=== PATIENT | female | born 1960 | race Caucasian/White ===

== ENCOUNTER 2020-06-25 09:41 | Outpatient (CLI) | payer MEDICARE, MEDICAID, SELFPAY ==
--- NOTE | 2020-06-25 09:50 | MM_ITS ---
WS: [id number] BILATERAL DIGITAL SCREENING MAMMOGRAPHY WITH CAD CLINICAL INFORMATION: SCREENING HISTORY: Screening mammogram. No current complaints. COMPARISON: December 2018 TECHNIQUE: Bilateral CC and MLO views. FINDINGS: Scattered fibroglandular densities bilaterally. No suspicious focal mass, asymmetry, calcifications, or architectural distortion. No evidence of malignancy. Lucent centered calcification. MM/[id number] IMPRESSION: BI-RADS: 2-Benign FOLLOW UP: 1 Year Follow-up Recommend return to annual screening mammography.
== END 2020-06-25 09:42 | disposition home or self-care (01) ==
LOC: RADSHAW 09:47
PROVIDERS: PCP Nurse Practitioner Family; Visit Provider Nurse Practitioner Family
DX: Z12.31 Encounter for screening mammogram for malignant neoplasm of breast (principal)
CPT/HCPCS: 77067

== ENCOUNTER → 2021-01-29 13:00 | Outpatient (BNVA) | payer MEDICARE, MEDICAID, SELFPAY | PROVIDERS: PCP Nurse Practitioner Family; Referring Provider Nurse Practitioner Family; Visit Provider Specialist | DX: R20.0 Anesthesia of skin (principal); R20.2 Paresthesia of skin; F41.0 Panic disorder [episodic paroxysmal anxiety] | CPT/HCPCS: 95907 ==

== ENCOUNTER → 2021-03-10 12:49 | Outpatient (BNVA) | payer MEDICARE, MEDICAID, SELFPAY | PROVIDERS: PCP Nurse Practitioner Family; Visit Provider Specialist | DX: G56.01 Carpal tunnel syndrome, right upper limb (principal); R20.0 Anesthesia of skin; R20.2 Paresthesia of skin | CPT/HCPCS: 95910 ==

== ENCOUNTER 2021-09-08 06:00 | Outpatient (RCR) | payer MEDICARE, MEDICAID, SELFPAY | END 2021-10-01 23:59 | disposition home or self-care (01) | LOC: SPT 06:00 | PROVIDERS: PCP Nurse Practitioner Family; Referring Provider Nurse Practitioner Family; Visit Provider Nurse Practitioner Family | DX: G89.29 Other chronic pain (principal); M25.511 Pain in right shoulder | CPT/HCPCS: 97110; 97161 ==

== ENCOUNTER 2021-12-14 09:35 | Outpatient (CLI) | payer MEDICARE, MEDICAID, SELFPAY ==
--- NOTE | 2021-12-14 09:44 | MM_ITS ---
WS: [id number] BILATERAL SCREENING DIGITAL TOMOSYNTHESIS MAMMOGRAM WITH CAD HISTORY: SCREENING COMPARISON: 06/25/2020 and 12/19/2018 Bilateral CC and MLO views with tomosynthesis and synthetic mammography submitted. Computer aided det ection analyzed. Breast composition: There are scattered areas of fibroglandular density. No suspicious masses, microc alcifications or architectural distortion. Benign calcifications in each breast. No suspicious mass o r calcification. MM/[id number] IMPRESSION: BI-RADS: 2-Benign FOLLOW UP: 1 Year Follow-up
== END 2021-12-14 09:36 | disposition home or self-care (01) ==
PROVIDERS: PCP Nurse Practitioner Family; Visit Provider Nurse Practitioner Family
DX: Z12.31 Encounter for screening mammogram for malignant neoplasm of breast (principal)
CPT/HCPCS: 77063; 77067

== ENCOUNTER → 2021-12-15 10:33 | Outpatient (BNVA) | payer MEDICARE, MEDICAID, SELFPAY | PROVIDERS: PCP Nurse Practitioner Family; Referring Provider Nurse Practitioner Family; Visit Provider Physician Assistant | DX: M47.22 Other spondylosis with radiculopathy, cervical region (principal); M50.30 Other cervical disc degeneration, unspecified cervical region | CPT/HCPCS: 72050; 99203; 99204 ==

== ENCOUNTER → 2022-01-12 12:51 | Outpatient (BNVA) | payer MEDICARE, MEDICAID, SELFPAY | PROVIDERS: PCP Nurse Practitioner Family; Visit Provider Physician Assistant | DX: M50.30 Other cervical disc degeneration, unspecified cervical region (principal); M47.22 Other spondylosis with radiculopathy, cervical region | CPT/HCPCS: 99214 ==

== ENCOUNTER 2022-01-12 13:55 | Outpatient (CLI) | payer MEDICARE, MEDICAID, SELFPAY | END 2022-01-12 13:56 | disposition home or self-care (01) | LOC: SPT 13:56 | PROVIDERS: PCP Nurse Practitioner Family; Visit Provider Physician Assistant | DX: Z46.89 Encounter for fitting and adjustment of other specified devices (principal); M47.22 Other spondylosis with radiculopathy, cervical region; M50.30 Other cervical disc degeneration, unspecified cervical region | CPT/HCPCS: 97760; L0172 ==

== ENCOUNTER 2022-02-22 10:22 | Inpatient (IN) | payer MEDICARE, MEDICAID, SELFPAY ==
[2022-02-15 09:28] VITALS: BMI 45.7
--- NOTE | 2022-02-15 09:50 | ANES.PREANE2 ---
Pre-Anesthetic Assessment Height/Weight: Height 1.65 m Weight 124.738 kg Preop Diagnosis: Cervical Spondylosis w/radiculopathy Operation Date: 02/22/22 13:25 Proposed Procedures p ACDF C4/5 C5/6 C6/7 [id number]/M47.22(Not Applicable) - Fei Barker, DO Familial anesthetic complications: None Social No alcohol and No tobacco Exam alert, oriented x 3, clear to auscultation bilaterally and regular rate & rhythm Airway Mallampati: Class II Dentition: other (no teeth) Pulmonary None reported CV/HEM None reported None reported Hepatic None reported GI None reported Metabolic Diabetes Mellitus, Morbid Obesity and Thyroid Disease Musc/skel Lower Back Pain Neuropsych None reported Anesthetic Plan ASA status: 3 Anesthesia: General Risk of > 500 ml blood loss (7ml/kg in children): No Medications/Allergies Home Medications Medication Instructions Recorded Confirmed Last Taken Type levothyroxine 75 mcg tablet 75 mcg PO DAILY 01/29/21 02/15/22 02/15/22 History (Levo-T) metformin 500 mg tablet 500 mg PO BID 01/29/21 02/15/22 02/15/22 History venlafaxine 75 mg capsule,extended 75 mg PO DAILY 01/29/21 02/15/22 Unknown History release 24 hr (Effexor XR) cervical collar #1 ea 01/12/22 01/12/22 Unknown Rx Intraoperative Neuromonitoring #1 ea 02/10/22 Unknown Rx Allergies Allergy/AdvReac Type Severity Reaction Status Date / Time Penicillins Allergy Mild shakes Verified 02/15/22 09:26 Data Anesthesia Cardiac Studies: No Data to Display
[2022-02-15 11:16] LABS: Anion Gap 14.1 (5-19); Blood Urea Nitrogen 20 mg/dL (6-20); Calcium 9.4 mg/dL (8.5-10.5); Carbon Dioxide 25 mmol/L (22-29); Chloride 104 mmol/L (98-107); Glomerular Filtration Rate 85.6 mL/min (90-130); Glucose 114 mg/dL (65-115); Osmolality Calculated 291 mOsm/kg (285-295); Potassium 4.1 mmol/L (3.5-5.1); Sodium 139 mmol/L (136-145)
[2022-02-22] VITALS (13 sets, daily range): BP systolic 84–144; BP diastolic 51–93; PULSE 72–110; RESP 16–18; TEMP 36.2–36.8; O2SAT 81–98; BMI 47.9
--- NOTE | 2022-02-22 | SCC_ITS ---
Post-op diagnosis: same Procedure done: 1. Anterior diskectomy C4/5 2. Anterior diskectomy C5/6 3. Anterior discectomy C6/7 4. Insertion of cage C4/5 5. Insertion of cage C5/6 6. Insertion of Cage C6/7 7. Instrumentation with anterior plate from C4-C7 8. Use of allograft 19.2 seconds of fluoroscopic guidance, for a cumulative dose of 4.08 mGy, was provided to Dr. Barker by the radiology department. C-arm images of the cervical spine were saved for the patient's permanent record. JAYE
--- NOTE | 2022-02-22 | XR_ITS ---
WS: [id number] INTRAOPERATIVE TECHNIQUE: 6 Spot fluoroscopic images for intraoperative purposes. FLUOROSCOPY TIME: 11.9 seconds CLINICAL INFORMATION: ACDF FINDINGS: ACDF C4-C7 with interbody fusion grafts. Hardware appears in good position. Endotracheal tube. C4-7 XR/XR cervical spine 3V* [id number] IMPRESSION: Images obtained for intraoperative purposes.
[2022-02-22 06:18] LABS: Glucose Point of Care 120 mg/dL (70-110)
[2022-02-22] MEDS: sodium chloride 0.9% 1,000 ML 30 ML IV (06:21)
--- NOTE | 2022-02-22 06:42 | PM.HP ---
Providers/Chief Complaint Primary Care Provider: MICHAEL Flowers Chief Complaint: ACDF C4/5 C5/6 C6/7 History of Present Illness Tamera Sofia is a 61 year old female ?neck pain with right upper extremity pain. Patient was ordered Prednisone taper dose up to her with her overall neck and arm pain.? 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 Patient reports her neck and arm pain is progressively gotten worse to the point where it is been unbearable for her with inability to care for herself.? Patient states that pain causes her to have migraine headaches.?Patient states when she bends over she feels like she may 'pass out'. Review of Systems General: Reports: 10 or more systems reviewed and unremarkable except in HPI and below Const: Denies: fever(s) or chills Card: Denies: chest pain or dyspnea on exertion Resp: Denies: dyspnea or productive cough GI: Denies: abdominal pain, nausea or vomiting : Denies: difficulty voiding Musc: Reports: neck pain; Denies: joint pain, joint swelling or limited range of motion Skin/Breast: Denies: changes in skin color or dry skin Neuro: Denies: numbness in extremities or weakness in extremities Psych: Denies: anxiety Antonio/Lymph: Denies: easy bruising or easy bleeding Medications/Allergies Home Medications Medication Instructions Recorded Confirmed Last Taken Type levothyroxine 75 mcg tablet 75 mcg PO DAILY 01/29/21 02/15/22 02/21/22 History (Levo-T) metformin 500 mg tablet 500 mg PO BID 01/29/21 02/15/22 02/21/22 History venlafaxine 75 mg capsule,extended 75 mg PO DAILY 01/29/21 02/15/22 02/21/22 History release 24 hr (Effexor XR) cervical collar #1 ea 01/12/22 01/12/22 Unknown Rx Intraoperative Neuromonitoring #1 ea 02/10/22 Unknown Rx Allergies Allergy/AdvReac Type Severity Reaction Status Date / Time Penicillins Allergy Mild shakes Verified 02/15/22 09:26 Vitals/I&O/Wt Last Vital Signs Temp 97.5 F L 02/22/22 06:05 Pulse 81 02/22/22 06:05 Resp 18 02/22/22 06:05 BP 144/93 02/22/22 06:05 Pulse Ox 81 L 02/22/22 06:05 O2 Del Method 02/22/22 06:23 Physical Exam Narrative: Narrative:?? EXAM NARRATIVE: Karlo tony demonstrates normal gait.? Neg ative Romberg or s igns of ataxia.? N ormal coordination and normal stabil ity.? Mildly tende r with palpation t hroughout the cerv ical and thoracic regions.? Normal s ensation to light touch in all derma tomal layers.? No signs of muscle wa sting.? Normal fun ctional range of m otion of the cervi chester with flexion t o 45 degrees with increased pain, ex tends 35 degrees, rotates 35 degrees symmetrically wit h difficulty, late rally bends 20 deg breann symmetrically .? Negative Spurli ng and Stevens chelsi ts.? Normal motor strength in all mu scle groups with 5 /5 strength in romel ulders, elbows, wr ists and digits bi laterally.? No [place] ss laxity.? Reflex es 1+ and symmetri c but the biceps, triceps and brachi oradialis bilatera lly.? Negative Pha ephraim's and Tinel's sign bilaterally.? Finger in her rig ht ring finger.? 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 Radia l pulses 2+ bilate rally.? No palpabl e lymphadenopathy. ? No evidence of p eripheral edema. HENMT:?? COMMON NORMALS: no rmocephalic? HEAD & SCALP: normoceph alic Resp:?? COMMON NORMALS: no rmal respiratory e ffort Cardio:?? COMMON NORMALS: re gular rate and reg ular rhythm? RATE: regular rate? RHY THM: regular rhyth m GI:?? COMMON NORMALS: So ft to palpation? P ALPATION: Yes Soft to palpation :?? COMMON NORMALS: Ye s no CVA tendernes s? BLADDER/KIDNEY EXAM: Yes no CVA t enderness Back/Pelvis:?? COMMON NORMALS: no CVA tenderness Psych:?? 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
[2022-02-22] MEDS: clindamycin 900 MG/50 ML PREMIX 100 MG IV ×3 (07:30→23:26)
--- NOTE | 2022-02-22 08:27 | P.ANESUD_ITS ---
Pre-Anesthetic Update Pre-Anesthetic Assessment: Date of Surgery/Procedure: 02/22/22 Preop Nissa gnosis: Cervical Spondylosis w/radiculopathy Proposed Procedure: Operation Date: 02/22/22 07:00 Proposed Procedures p ACDF C4/5 C5/6 C6/7 [id number]/M47.22(Not Applicable) - Fei Barker, DO Any changes to Pre-Anesthetic Assessment?: No Last Intake: Intake Last Liquid Date 02/21/22 Last Liquid Time 20:00 Last Solid Date 02/21/22 Last Solid Time 20:00 Vitals: Temperature 97.5 F L 02/22/22 06:05 Temperature Source Temporal Artery S can 02/22/22 06:05 Pulse Rate 81 02/22/22 06:05 Respiratory Rate 18 02/22/22 06:05 Blood Pressure 144/93 02/22/22 06:05 Blood Pressure Fatuma n 110 02/22/22 06:05 Pulse Oximetry 81 L 02/22/22 06:05 Oxygen Delivery Me thod 02/22/22 06:23 Exam: Pre-Anes Outpt Exam: alert, oriented x 3, clear to auscultation bilaterally and regular rate & rhythm Cardiac Studies: No Data to Display
[2022-02-22 09:13] LABS: HIV 1 & 2 Antibody Non-Reactive (Non-Reactiv); HIV 1 & 2 Antigen Non-Reactive (Non-Reactiv)
--- NOTE | 2022-02-22 10:00 | PM.OP ---
Operative Report Date of procedure: February 22, 2022 Pre-op diagnosis: Preop Diagnosis Cervical Spondylosis w/radiculopathy Post-op diagnosis: same Procedure done: 1. Anterior diskectomy C4/5 2. Anterior diskectomy C5/6 3. Anterior discectomy C6/7 4. Insertion of cage C4/5 5. Insertion of cage C5/6 6. Insertion of Cage C6/7 7. Instrumentation with anterior plate from C4-C7 8. Use of allograft Surgeon: Fei Barker Securities Compliance Examiner: Abel Pelletier Securities Compliance Examiner: The director medical surgical, Abel Pelletier, PAC was needed for his expertise under the microscope. He was important and necessary throughout the procedure to complete in a safe and timely manner. He assisted with patient positioning prepping and draping tissue retraction suctioning of the operative field protection of the dural sac and tissue closure Estimated blood loss (mL): 300 Procedure: 1. Anterior diskectomy C4/5 2. Anterior diskectomy C5/6 3. Anterior discectomy C6/7 4. Insertion of cage C4/5 5. Insertion of cage C5/6 6. Insertion of Cage C6/7 7. Instrumentation with anterior plate from C4-C7 8. Use of allograft The patient was taken to the operating room, where he underwent general endotracheal anesthesia without complications. He was then positioned supine on the operating table, and all areas of impingement were well padded. The arms were carefully padded and tucked at his sides. A roll was placed between the shoulder blades.. An x-ray was done to determine the appropriate level for the skin incision. The entire neck was then sterilely prepped and draped in the usual fashion. Neuromonitoring was attached prior to prepping. A transverse skin incision was made and carried down to the platysma muscle. This was then split in line with its fibers. Blunt dissection was carried down medial to the carotid sheath and lateral to the trachea and esophagus until the anterior cervical spine was visualized. A needle was placed into a disc and an x-ray was done to determine its location. The longus colli muscles were then elevated bilaterally with the electrocautery unit. Self-retaining retractors were placed deep to the longus colli muscle. Attention was brought to the C4/5 level that was confirmed on x-ray. A caspar pin was placed into the C4 vertebrae and the C5 vertebrae. The disk space was then distracted. The microscope was then brought in. A radical anterior discectomies were performed at C4/5. This included complete removal of the anterior annulus, nucleus, and posterior annulus. The posterior longitudinal ligament was removed as were the posterior osteophytes. Foraminotomies were then accomplished bilaterally. This was done using a high speed jake, kerrison rongeurs and curretes Once all of this was accomplished, the curved currette was used to check for any residual compression. The central canal was wide open as were the foramen. A high-speed bur was used to remove the cartilaginous endplates above and below the interspace. Bleeding cancellous bone was exposed. The disc space were measured and appropriate size cage were placed sterilely onto the field. Allograft graft was packed into the cages. The cage was then placed and there was good juxtaposition against the bleeding decorticated surfaces and good distraction of each interspace. Attention was brought to the next interspace. The Guy pins were removed. Bone wax was used to prevent any bleeding from occurring at the pin sites. Attention was brought to the C5/6 level that was confirmed on x-ray. A caspar pin was placed into the C5 vertebrae and the C6 vertebrae. The disk space was then distracted. The microscope was then brought in. A radical anterior discectomies were performed at C5/6. This included complete removal of the anterior annulus, nucleus, and posterior annulus. The posterior longitudinal ligament was removed as were the posterior osteophytes. Foraminotomies were then accomplished bilaterally. This was done using a high speed jake, kerrison rongeurs and curretes Once all of this was accomplished, the curved currette was used to check for any residual compression. The central canal was wide open as were the foramen. A high-speed bur was used to remove the cartilaginous endplates above and below the interspace. Bleeding cancellous bone was exposed. The disc space were measured and appropriate size cage were placed sterilely onto the field. Allograft graft was packed into the cages. The cage was then placed and there was good juxtaposition against the bleeding decorticated surfaces and good distraction of each interspace. Attention was brought to the next interspace. The Guy pins were removed. Bone wax was used to prevent any bleeding from occurring at the pin sites. Attention was brought to the C6/7 level that was confirmed on x-ray. A caspar pin was placed into the C6 vertebrae and the C7 vertebrae. The disk space was then distracted. The microscope was then brought in. A radical anterior discectomies were performed at C6/7. This included complete removal of the anterior annulus, nucleus, and posterior annulus. The posterior longitudinal ligament was removed as were the posterior osteophytes. Foraminotomies were then accomplished bilaterally. This was done using a high speed jake, kerrison rongeurs and curretes Once all of this was accomplished, the curved currette was used to check for any residual compression. The central canal was wide open as were the foramen. A high-speed bur was used to remove the cartilaginous endplates above and below the interspace. Bleeding cancellous bone was exposed. The disc space were measured and appropriate size cage were placed sterilely onto the field. Allograft graft was packed into the cages. The cage was then placed and there was good juxtaposition against the bleeding decorticated surfaces and good distraction of each interspace. Attention was brought to the next interspace. The Guy pins were removed. Bone wax was used to prevent any bleeding from occurring at the pin sites. The appropriate size anterior cervical locking plate was chosen and bent into gentle lordosis. Two screws were then placed into each of the vertebral bodies at C4,C5, C6 and C7. There was excellent purchase. A final x-ray was done confirming good position of the hardware and Cages. The locking screws were then applied, also with excellent purchase. Following a final copious irrigation, there was good hemostasis and no dural leaks. The carotid pulse was strong. The wounds were then closed in layers using 2-0 Vicryl suture for the platysma muscle, 2-0 Vicryl suture for the subcutaneous tissue, and 4-0 monocryl suture in a subcuticular skin closure. Glue was placed followed by application of a sterile dressing. The drain was hooked to bulb suction. A soft collar was applied. The patient was then carefully returned to the supine position on his hospital bed where he was reversed and extubated and taken to the recovery room having tolerated the procedure well.
[2022-02-22 10:16] LABS: Basophils % 0.4 %; Eosinophils % 0.4 %; Hematocrit 33.2 % (37.0-47.0); Hemoglobin 10.3 g/dL (11.5-15.3); Lymphocytes # 0.9 10^3/uL (0.8-4.8); Lymphocytes % 11.8 %; Mean Corpuscular Hemoglobin 27.7 pg (28.0-34.0); Mean Corpuscular Volume 89.2 fl (81-99); Monocytes # 0.2 10^3/uL (0.2-0.9); Monocytes % 2.9 %; Neutrophils # 6.73 10^3/uL (1.8-7.7); Nucleated Red Blood Cells % 0 %; Platelet Count 194 10^3/cmm (130-400); Red Blood Count 3.72 10^6/uL (4.1-5.3); Red Cell Distribution Width 14.7 % (12.1-15.1)
[2022-02-22] MEDS: lactated ringers 1,000 ML 90 ML IV ×2 (11:02→21:31)
[2022-02-22] MEDS: HYDROcodone-acetaminophen 5-325 mg Tablet PO ×2 (11:03→18:03)
--- NOTE | 2022-02-22 15:24 | ANE.PACU2 ---
Inpatient post-anesthesia follow up: Airway intact: Yes Vital signs: Temperature 97.3 F Pulse Rate 72 Respiratory Rate 18 Blood Pressure 131/63 Pulse Oximetry 98 Oxygen Delivery Me thod Nasal Cannula Oxygen Flow Rate 2 Fraction of Inspir ed Oxygen Hydration adequate: Yes Nausea and vomiting: No Pain level: 3 Mental status: Baseline
[2022-02-22 15:31] LABS: Hepatitis B Surface Antigen Non-Reactive (Nonreactive)
[2022-02-22] MEDS: docusate sodium 100 mg Capsule PO (17:04)
[2022-02-22] MEDS: metformin 500 mg Tablet PO (17:04)
[2022-02-23] VITALS: BP 131/86; PULSE 105; RESP 17; TEMP 36.4; O2SAT 95
[2022-02-23 03:50] VITALS: BP 132/83; PULSE 100; RESP 17; TEMP 36.9; O2SAT 92
[2022-02-23 06:00] VITALS: BP 132/83; PULSE 100; RESP 17; TEMP 36.9; O2SAT 92
--- NOTE | 2022-02-23 07:20 | PM.PN ---
Subjective Subjective: POD 1 Resting comfortably. Reports improvement of arm pain. Denies any voice or swallowing difficulties. Denies shortness of breath, headaches, chest pain. Vitals/I&O/Wt Last Vital Signs Temp 98.5 F 02/23/22 06:00 Pulse 100 02/23/22 06:00 Resp 17 02/23/22 06:00 BP 132/83 02/23/22 06:00 Pulse Ox 92 02/23/22 06:00 O2 Del Method 02/23/22 06:00 O2 Flow Rate 2 02/22/22 11:24 02/22/22 02/23/22 02/23/22 22:59 06:59 14:59 Intake Total 1673.5 / 2323.5 290 / 2613.5 Output Total 1900 / 2700 1530 / 4230 Balance -226.5 / -376.5 -1240 / -1616.5 Weight last 48 hrs Weight 288 lb 3.2 oz Physical Exam Narrative: Patient is alert and oriented x3 with a good general appearance normal mood and affect. Incision is clean and dry none tender with palpation about the incisional site. Incision appears to be healing nicely without signs of erythema or drainage. No signs of infection. Good motor strength throughout both upper extremities. Appears to fire in all motor groups with 5/5 strength. Hands are warm good cap refill in all digits. Normal sensation to light touch in all dermatomal areas. Urinary Catheter Management: Oliver Latex: Cath Placed During This Visit: yes Reason for Continuing Indwelling Catheter: Perioperative Use in Selected Surgeries Urinary Catheter Date of Insertion: 02/22/22 Urinary Catheter Time of Insertion: 07:30 Data 02/22/22 10:10 02/15/22 09:45 A&P Assessment and plan (1) Status post cervical spinal fusion: Discontinue Hemovac drain. Discontinue Oliver catheter. Physical therapy to work with mobilization. Will discharge home see her back in the office in 1 week's time for follow-up. 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
[2022-02-23 08:06] VITALS: BP 142/91; PULSE 89; RESP 16; TEMP 37; O2SAT 92
[2022-02-23] MEDS: metformin 500 mg Tablet PO (08:41)
[2022-02-23] MEDS: levothyroxine 75 mcg Tablet PO (08:41)
[2022-02-23] MEDS: docusate sodium 100 mg Capsule PO (08:42)
[2022-02-23] MEDS: venlafaxine ER (24HR) 75 mg Capsule PO (08:42)
[2022-02-23] MEDS: clindamycin 900 MG/50 ML PREMIX 100 MG IV (08:42)
[2022-02-23] MEDS: lactated ringers 1,000 ML 90 ML IV (08:43)
--- NOTE | 2022-02-23 10:19 | PC.NURSE ---
Orders given to remove hemovac, drain removed , pt tolerated well. steri strips remain in place. silverlon dressing reapplied. c collar in place.
[2022-02-23 11:16] VITALS: BP 142/91; PULSE 89; RESP 16; TEMP 37; O2SAT 92
[2022-02-23 20:23] LABS: Hepatitis B Virus DNA <10 NOT DETECTED IU/mL (NOT DETECTED); Hepatitis B Virus DNA PCR <1.00 NOT DETECTED Log IU/mL (NOT DETECTED)
--- NOTE | 2022-02-24 12:52 | PM.DCS ---
Discharge Providers Date of Admission: 02/22/22 10:22 Date of Discharge: February 23, 2022 Attending Provider at Admission: Fei Barker DO Attending Provider at Discharge: Fei Barker DO Primary Care Provider: MICHAEL Flowers Diagnoses at Discharge Discharge Diagnosis (1) Status post cervical spinal fusion: Status: Acute Reason for Visit Reason for Visit: ACDF C4/5 C5/6 C6/7 Hospital Course Hospital Course uneventful Physical Exam Urinary Catheter Management: Oliver Latex: Cath Placed During This Visit: yes, but has since been removed by the nurse Reason for Continuing Indwelling Catheter: Decision to DC Catheter Urinary Catheter Date of Insertion: 02/22/22 Urinary Catheter Time of Insertion: 07:30 Date Urinary Catheter Removed: 02/23/22 Time Urinary Catheter Discontinued: 10:18 Discharge Data Studies Completed and Pending Completed Studies During Hospitalization Category Date Time Status XR cervical spine 3V* 01975 Routine Exams 02/22/22 Completed Radiology Impressions Cervical Spine X-Ray 02/22/22 00:00 IMPRESSION: Images obtained for intraoperative purposes. Laboratory Results WBC 8.0 10^3/uL (4.0-10.0) 02/22/22 10:10 Corrected WBC Cancelled 02/22/22 08:56 RBC 3.72 10^6/uL (4.1-5.3) L 02/22/22 10:10 Hgb 10.3 g/dL (11.5-15.3) L 02/22/22 10:10 Hct 33.2 % (37.0-47.0) L 02/22/22 10:10 MCV 89.2 fl (81-99) 02/22/22 10:10 MCH 27.7 pg (28.0-34.0) L 02/22/22 10:10 MCHC 31.0 g/dL (30.0-36.0) 02/22/22 10:10 RDW 14.7 % (12.1-15.1) 02/22/22 10:10 Plt Count 194 10^3/cmm (130-400) 02/22/22 10:10 MPV 11.0 fL (7.4-10.4) H 02/22/22 10:10 Gran % Cancelled 02/22/22 08:56 Neut % (Auto) 84.0 % 02/22/22 10:10 Lymph % (Auto) 11.8 % 02/22/22 10:10 [place] % (Auto) 2.9 % 02/22/22 10:10 Eos % (Auto) 0.4 % 02/22/22 10:10 Baso % (Auto) 0.4 % 02/22/22 10:10 Neut # (Auto) 6.73 10^3/uL (1.8-7.7) 02/22/22 10:10 Lymph # (Auto) 0.9 10^3/uL (0.8-4.8) 02/22/22 10:10 [place] # (Auto) 0.2 10^3/uL (0.2-0.9) 02/22/22 10:10 Eos # (Auto) 0.0 10^3/uL (0.0-0.8) 02/22/22 10:10 Baso # (Auto) 0.0 10^3/uL (0.0-0.1) 02/22/22 10:10 Absolute Gran (auto) Cancelled 02/22/22 08:56 Nucleated RBC % (auto) 0 % 02/22/22 10:10 Nucleated RBCs # 0.0 /100WBC 02/22/22 10:10 Sodium 139 mmol/L (136-145) 02/15/22 09:45 Potassium 4.1 mmol/L (3.5-5.1) 02/15/22 09:45 Chloride 104 mmol/L (98-107) 02/15/22 09:45 Carbon Dioxide 25 mmol/L (22-29) 02/15/22 09:45 Anion Gap 14.1 (5-19) 02/15/22 09:45 BUN 20 mg/dL (6-20) 02/15/22 09:45 Creatinine 0.7 mg/dL (0.5-0.9) 02/15/22 09:45 GFR Calculation 85.6 mL/min (90-130) L 02/15/22 09:45 Glucose 114 mg/dL (65-115) 02/15/22 09:45 POC Glucose 120 mg/dL (70-110) H 02/22/22 06:14 Calculated Osmolality 291 mOsm/kg (285-295) 02/15/22 09:45 Calcium 9.4 mg/dL (8.5-10.5) 02/15/22 09:45 Hep Bs Antigen Non-reactive (Nonreactive) 02/22/22 08:15 Hepatitis B DNA (PCR) <1.00 not detected Log IU/mL (NOT DETECTED) 02/22/22 08:15 Hep B DNA Interpret <10 not detected IU/mL (NOT DETECTED) 02/22/22 08:15 HIV 1&2 Ab & HIV 1 Ag Non-reactive (Non-Reactiv) 02/22/22 08:15 HIV 1&2 Antibody Non-reactive (Non-Reactiv) 02/22/22 08:15 Vitals Last Vital Signs Temp 98.6 F 02/23/22 11:16 Pulse 89 02/23/22 11:16 Resp 16 02/23/22 11:16 BP 142/91 02/23/22 11:16 Pulse Ox 92 02/23/22 11:16 O2 Del Method 02/23/22 06:00 O2 Flow Rate 2 02/22/22 11:24 Discharge Plan Discharge Patient Disposition: Home Condition: Stable Prescriptions: New hydrocodone-acetaminophen 5-325 mg Tablet 1 - 2 tab PO Q4H PRN (Reason: Moderate To Severe Pain) Qty: 40 0RF Continued venlafaxine [Effexor XR] 75 mg capsule,extended release 24hr 75 mg PO DAILY metformin 500 mg tablet 500 mg PO BID levothyroxine [Levo-T] 75 mcg tablet 75 mcg PO DAILY (DME) cervical collar See Rx Instructions .Route .MEDSUPPLY Qty: 1 0RF Rx Instructions: As directed (DME) Intraoperative Neuromonitoring See Rx Instructions .Route .MEDSUPPLY Qty: 1 0RF Rx Instructions: As directed (DME) Bone Growth Stimulator [id number] See Rx Instructions .Route .MEDSUPPLY Qty: 1 0RF Rx Instructions: As directed Discharge Orders: Discharge Order (Routine); Ordered 02/23/22 Ordered By: Abel Pelletier Referrals: Fei Barker DO [Physician] - 03/04/22 3:45 pm Adela Cunningham FNP [Primary Care Provider] - 03/01/22 10:00 am Discharge Diet: Advance as tolerated Discharge Activity: Limit activity as instructed Patient Instructions: Hydrocodone/Acetaminophen (By mouth), Anterior Posterior Spinal Fusion (DC), Opioid Safety Activity Restrictions/Additional Instructions: Thank you for choosing [facility] for your care! The following is a list of instructions, from your provider, to follow upon your discharge to ensure you have the optimal recovery from your recent injury or surgery. Anterior Cervical Discectomy and Fusion: What to Expect at Home Your Recovery Follow-up care is a pelayo part of your treatment and safety. Be sure to make and go to all appointments, and call your doctor if you are having problems. If you do not already have a follow-up appointment made, call office in the next 1-3 days to make follow up appointment for 1 weeks at [phone]. It is also a good idea to know your test results and keep a list of the medicines you take. You can expect your neck to feel stiff or sore after surgery. This should improve in the weeks after surgery. But it may take 4 to 6 months for you to get better completely. You may have trouble sitting or standing in one position for very long and may need pain medicine in the weeks after your surgery. It may take 4 to 6 weeks to get back to your usual activities, but it may depend on what kind of surgery you had. Your throat will feel sore and it may be difficult to swallow for the first 3 days after your surgery. As long as you can get liquids down without difficulty, this should slowly improve, otherwise call our office or seek medical attention if it becomes increasingly difficult to get anything down including liquids. Avoid hot liquids for first 3-5 days. Soothing foods/liquids such as jello, pudding, and luke warm soups are recommended until swallowing improves. Staying elevated will also help, it's advised you keep propped up at while sleeping to help reduce the swelling. You may use an ice pack directly on your incision or around it on the front of your neck, using a cloth to protect your skin; and a heating pad to the back of your neck as needed. Do not use over the counter anti-inflammatory medications (Ibuprofen, Motrin, Aleve, Advil, etc) Taking these meds after having a fusion can delay fusion rates, we recommend you avoid them for the first 3 [address] your surgery[address] Dr. Barker may advise you to work with a physical therapist to strengthen the muscles around your neck and back - this will be discussed at your follow - up appointments. The pain or numbness you were having in your arms before surgery should get better or go away completely. This care sheet gives you a general idea about how long it will take for you to recover. But each person recovers at a different pace. Follow the steps below to get better as quickly as possible. How can you care for yourself at home? Activity ? Rest when you feel tired. Getting enough sleep will help you recover. ? Try to walk each day. Start by walking a little more than you did the day before. Bit by bit, increase the amount you walk. Walking boosts blood flow and helps prevent pneumonia and constipation. Walking may also decrease your muscle soreness after surgery. ? No lifting anything that is more that 5 pounds. This may include heavy grocery bags and milk containers, a heavy briefcase or backpack, cat litter or dog food bags, a child, or a vacuum acid tank cleaner. ? Avoid strenuous activities, such as bicycle riding, jogging, weightlifting, or aerobic exercise, until your doctor says it is okay. ? Do not drive until your follow-up visit after your surgery, or until your doctor says it isokay. ? Avoid taking long car trips for 2 to 4 weeks after surgery. Your neck may become tired and painful from sitting too long in one position. ? You will probably need to take 4 to 6 weeks off from work. It depends on the type of work you do and how you feel. ? You may have sex as soon as you feel able, but avoid positions that put stress on your neck or cause pain. Diet ? You can eat your normal diet. If your stomach is upset, try bland, low-fat foods like plain rice, broiled chicken, toast, and yogurt ? Drink plenty of fluids. If you have kidney, heart, or liver disease and have to limit fluids, talk with your doctor before you increase the amount of fluids you drink. ? You may notice that your bowel movements are not regular right after your surgery. This is common. Try to avoid constipation and straining with bowel movements. You may want to take a fiber supplement every day. If you have not had a bowel movement after a couple of days, ask your doctor about taking a mild laxative. Medicines ? Take pain medicines exactly as directed. 1. If Dr. Lucero gave you a prescription medicine for pain, take lt as prescribed. 2. Do not take two or more pain medicines at the same time unless the doctor told you to. Many pain medicines have acetaminophen, which is Tylenol. Too much acetaminophen {Tylenol) can be harmful. 3. If you think your pain pill is making you sick to your stomach: 4. Take your pills after meals (unless your doctor has told you not to). 5. Ask your Dr. for a different pain pill. Incisioncare ? Remove your dressing 48 hours after your surgery. Ok to shower and get the incision wet. Do not overtly wash your incision. When done, pad dry, leave open to air thereafter. Avoid creams and ointments directly on your incision. ? Your sutures in the incision will dissolve and fall out on their own. ? Keep the area clean and dry. You may cover it with a gauze bandage if it weeps or rubs against clothing; if you choose to do this, change the dressing everyday. Other instructions ? Use a heating pad, hot water bottle, or gentle massage on your back to reduce stiffness. Avoid putting heat on your incision When should you call for help? ? Call 911 anytime you think you may need emergency care. For example, call if: ? You pass out (lose consciousness). ? You have sudden chest pain and shortness of breath, or you cough upblood. ? You cannot swallow. ? You have severe pain in your neck or back. ? Call your Dr. or seek immediate medical care if: ? You have pain that does not get better after you take pain pills. ? You have loose stitches, or your incision comes open. ? You have blood or fluid draining from the incision. ? You have signs of infection, such as: 1. Increased pain, swelling, warmth, or redness. 2. Red streaks leading from the site. 3. Pus draining from the site. 4. Swollen lymph nodes in your neck or armpits. 5. A fever. ? You have severe pain in your arms. ? You have new or increased weakness or numbness in your arms. ? Watch closely for any changes in your health, and be sure to contact your doctor if: ? You do not have a bowel movement after taking a laxative. Discharge Attestations Time Spent in Discharge Care*: less than 30 min Quality Metrics Clinical Quality Measures [ No reported AMI, CVA or VTE this stay] Coding Level of Care Code Acute Chg FW DC note Diagnoses Status post cervical spinal fusion Z98.1
== END 2022-02-23 11:18 | disposition home or self-care (01) | DRG 473 ==
LOC: MEDSURG 10:23
PROVIDERS: Anesthesiology; Admitting Provider Orthopaedic Surgery; PCP Nurse Practitioner Family; Visit Provider Orthopaedic Surgery
PROC: 0RB30ZZ Excision of Cervical Vertebral Disc, Open Approach (ICD-10-PCS; CPT 22551; principal; 2022-02-22 07:00)
DX: M47.22 Other spondylosis with radiculopathy, cervical region (principal)
CPT/HCPCS: 36415; 36416; 51702; 72040; 76000; 80048; 82962; 85025; 87340; 87517; 87806; 97110; 97116; 97161; C1713; C9359; J0330; J1100; J2250; J2370; J2405; J2704; J2710; J3010; J3490; J7030; J7120; P9047

== ENCOUNTER → 2022-03-04 15:37 | Outpatient (BNVA) | payer MEDICARE, MEDICAID, SELFPAY | PROVIDERS: PCP Nurse Practitioner Family; Visit Provider Orthopaedic Surgery | DX: Z47.89 Encounter for other orthopedic aftercare (principal); Z98.1 Arthrodesis status | CPT/HCPCS: 99024 ==

== ENCOUNTER → 2022-04-01 14:58 | Outpatient (BNVA) | payer MEDICARE, MEDICAID, SELFPAY | PROVIDERS: PCP Nurse Practitioner Family; Visit Provider Physician Assistant | DX: Z98.890 Other specified postprocedural states (principal); Z98.1 Arthrodesis status | CPT/HCPCS: 72040; 99024 ==

== ENCOUNTER → 2022-05-13 11:13 | Outpatient (BNVA) | payer MEDICARE, MEDICAID, SELFPAY | PROVIDERS: PCP Nurse Practitioner Family; Visit Provider Physician Assistant | DX: Z98.1 Arthrodesis status (principal) | CPT/HCPCS: 72040; 99024 ==

== ENCOUNTER → 2022-05-27 11:02 | Outpatient (BNVA) | payer MEDICARE, MEDICAID, SELFPAY | PROVIDERS: PCP Nurse Practitioner Family; Visit Provider Physician Assistant | DX: M51.36 Other intervertebral disc degeneration, lumbar region (principal); M47.816 Spondylosis without myelopathy or radiculopathy, lumbar region; Z98.1 Arthrodesis status | CPT/HCPCS: 72040; 72110; 99213 ==

== ENCOUNTER → 2022-08-12 09:56 | Outpatient (BNVA) | payer MEDICARE, MEDICAID, SELFPAY | PROVIDERS: PCP Nurse Practitioner Family; Visit Provider Orthopaedic Surgery | DX: Z98.890 Other specified postprocedural states (principal); Z98.1 Arthrodesis status | CPT/HCPCS: 72040; 99213 ==

== ENCOUNTER → 2023-01-12 10:28 | Outpatient (BNVA) | payer MEDICARE, MEDICAID, SELFPAY | PROVIDERS: PCP Nurse Practitioner Family; Visit Provider Specialist | DX: M75.81 Other shoulder lesions, right shoulder; M75.01 Adhesive capsulitis of right shoulder; J44.9 Chronic obstructive pulmonary disease, unspecified | CPT/HCPCS: 73030; 99204 ==

== ENCOUNTER 2023-01-26 13:09 | Outpatient (RCR) | payer MEDICARE, MEDICAID, SELFPAY | END 2023-02-01 23:59 | disposition home or self-care (01) | LOC: SPT 13:09 | PROVIDERS: PCP Nurse Practitioner Family; Visit Provider Specialist | DX: M75.01 Adhesive capsulitis of right shoulder (principal) | CPT/HCPCS: 97110; 97161 ==

== ENCOUNTER 2023-02-02 06:00 | Outpatient (RCR) | payer MEDICARE, MEDICAID, SELFPAY | END 2023-02-21 16:31 | disposition home or self-care (01) | LOC: SPT 06:00 | PROVIDERS: PCP Nurse Practitioner Family; Visit Provider Specialist | DX: M75.01 Adhesive capsulitis of right shoulder (principal) | CPT/HCPCS: 97110 ==

== ENCOUNTER → 2023-03-22 15:13 | Outpatient (BNVA) | payer MEDICARE, MEDICAID, SELFPAY | PROVIDERS: PCP Nurse Practitioner Family; Visit Provider Orthopaedic Surgery | DX: G56.23 Lesion of ulnar nerve, bilateral upper limbs (principal); M19.012 Primary osteoarthritis, left shoulder; M19.011 Primary osteoarthritis, right shoulder; Z98.1 Arthrodesis status | CPT/HCPCS: 72040; 73030; 99214 ==

== ENCOUNTER → 2024-02-08 10:34 | Outpatient (BNVA) | payer MEDICAID, MEDICARE, SELFPAY | PROVIDERS: PCP Nurse Practitioner Family; Visit Provider Nurse Practitioner Family | DX: L21.8 Other seborrheic dermatitis (principal); L29.89 Other pruritus; F42.4 Excoriation (skin-picking) disorder; L81.4 Other melanin hyperpigmentation; L57.8 Other skin changes due to chronic exposure to nonionizing radiation; D22.5 Melanocytic nevi of trunk; Z85.828 Personal history of other malignant neoplasm of skin | CPT/HCPCS: 99204 ==

== ENCOUNTER → 2024-03-13 09:14 | Outpatient (BNVA) | payer MEDICARE, MEDICAID, SELFPAY | PROVIDERS: PCP Nurse Practitioner Family; Visit Provider Nurse Practitioner Family | DX: L21.8 Other seborrheic dermatitis (principal); L29.89 Other pruritus; F42.4 Excoriation (skin-picking) disorder; Z85.828 Personal history of other malignant neoplasm of skin | CPT/HCPCS: 99214 ==

== ENCOUNTER → 2024-10-17 12:48 | Outpatient (BNVA) | payer MEDICARE, MEDICAID, SELFPAY | PROVIDERS: PCP Nurse Practitioner Family; Visit Provider Nurse Practitioner Family | DX: L98.1 Factitial dermatitis (principal); L21.8 Other seborrheic dermatitis; Z08 Encounter for follow-up examination after completed treatment for malignant neoplasm; Z85.828 Personal history of other malignant neoplasm of skin | CPT/HCPCS: 99214 ==

== ENCOUNTER → 2024-11-20 14:22 | Outpatient (BNVA) | payer MEDICARE, MEDICAID, SELFPAY | PROVIDERS: PCP Nurse Practitioner Family; Visit Provider Podiatrist Foot & Ankle Surgery | DX: M79.671 Pain in right foot (principal); M79.672 Pain in left foot; M72.2 Plantar fascial fibromatosis; M77.8 Other enthesopathies, not elsewhere classified | CPT/HCPCS: 73630; 99204 ==

== ENCOUNTER → 2024-12-25 14:51 | Outpatient (BNVA) | payer MEDICARE, MEDICAID, SELFPAY | PROVIDERS: PCP Nurse Practitioner Family; Visit Provider Podiatrist Foot & Ankle Surgery | DX: M72.2 Plantar fascial fibromatosis (principal); M77.8 Other enthesopathies, not elsewhere classified | CPT/HCPCS: 99213 ==

== ENCOUNTER → 2025-01-02 09:31 | Outpatient (BNVA) | payer MEDICARE, MEDICAID, SELFPAY | DX: E78.5 Hyperlipidemia, unspecified (principal); E03.9 Hypothyroidism, unspecified | CPT/HCPCS: 80053; 80061; 84443; 85025 ==

== ENCOUNTER 2025-01-18 11:15 | Outpatient (CLI) | payer MEDICARE, MEDICAID, SELFPAY ==
--- NOTE | 2025-01-18 11:20 | MM_ITS ---
WS: [id number] BILATERAL 3D TOMOSYNTHESIS DIGITAL SCREENING MAMMOGRAPHY WITH CAD CLINICAL INFORMATION: screening COMPARISON: 2021 TECHNIQUE: Bilateral CC and MLO views. FINDINGS: Scattered fibroglandular densities bilaterally. No suspicious focal mass, asymmetry, calcifications, or architectural distortion. No evidence of malignancy. Incidental punctate and lucent centered calcifications. Vascular calcification. MM/MM scr BI tomosynthesis [id number] IMPRESSION: DENSITY: There are scattered areas of fibroglandular density. BI-RADS: 2 - Benign. FOLLOW UP: 1 Year Follow-up Recommend return to annual screening mammography.
== END 2025-01-18 11:16 | disposition home or self-care (01) ==
LOC: RAD 11:16
DX: Z12.39 Encounter for other screening for malignant neoplasm of breast (principal); Z12.31 Encounter for screening mammogram for malignant neoplasm of breast; R92.323 Mammographic fibroglandular density, bilateral breasts; R92.1 Mammographic calcification found on diagnostic imaging of breast
CPT/HCPCS: 77063; 77067

== ENCOUNTER → 2025-03-07 10:49 | Outpatient (BNVA) | payer MEDICARE, MEDICAID, SELFPAY | PROVIDERS: Visit Provider Nurse Practitioner Family | DX: L98.1 Factitial dermatitis (principal); L81.4 Other melanin hyperpigmentation; L57.8 Other skin changes due to chronic exposure to nonionizing radiation; Z08 Encounter for follow-up examination after completed treatment for malignant neoplasm; Z85.828 Personal history of other malignant neoplasm of skin | CPT/HCPCS: 99214 ==